=== PATIENT | male | born 1970 | race Caucasian/White ===

== ENCOUNTER 2021-11-07 16:10 | Outpatient (CLI) | payer BC, SELFPAY ==
[2021-11-07 17:34] LABS: Influenza Control Valid (Valid); SARS-CoV-2 Ag Positive (Negative)
== END 2021-11-07 16:11 | disposition home or self-care (01) ==
LOC: CHSLAB 16:14
PROVIDERS: PCP Family Medicine; Visit Provider Family Medicine
DX: U07.1 COVID-19 (principal); R50.9 Fever, unspecified
CPT/HCPCS: 87426; 87804; C9803

== ENCOUNTER 2023-01-08 10:37 | Outpatient (CLI) | payer BC, SELFPAY ==
--- NOTE | ~2023-01-08 | US_ITS ---
EXAMINATION: US venous doppler [facility] DATE: 01/08/2023 11:37 INDICATION: Other specified soft tissue disorders TECHNIQUE: Grayscale ultrasound images without and with compression and Doppler ultrasound images of the bilateral lower extremity veins were obtained. COMPARISON: None. FINDINGS: Noncompressible deep venous thrombosis in the right popliteal, posterior tibial and gastrocnemius vei ns. The visualized portions of right common femoral vein, profunda (deep) femoral vein, femoral vein, peroneal veins and greater saphenous vein outflow are patent. The visualized portions of left common femoral vein, profunda femoral vein, femoral vein, popliteal v ein, posterior tibial veins, peroneal veins, gastrocnemius vein and greater saphenous vein outflow ar e patent. IMPRESSION: 1. [id number] deep venous thrombosis in the right popliteal, posterior tibial and gastrocnemius veins. Dr. Blevins discussed these findings with Dr. Barker at 11:45 AM. 2. No deep venous thrombosis in the left lower limb. Reviewed, dictated and finalized at location B. IMPRESSION: 1. [id number] deep venous thrombosis in the right popliteal, posterior tib ial and gastrocnemius veins. Dr. Blevins discussed these findings with Dr. Tab sexton at 11:45 AM. 2. No deep venous thrombosis in the left lower limb.
[2023-01-08 10:59] LABS: Basophils Absolute Auto 0.03 K/mm3 (0.00-0.10); Basophils Percent Auto 0.3 % (0.0-1.0); Eosinophils Absolute Auto 0.22 K/mm3 (0.02-0.50); Eosinophils Percent Auto 1.9 % (1.0-6.0); Hematocrit 48.9 % (40.0-54.0); Hemoglobin 16.1 g/dL (14.0-18.0); Immature Granulocyte Absolute 0.06 K/mm3 (0.00-0.00); Immature Granulocyte Percent A 0.5 % (0.0-0.0); Lymphocytes Absolute Auto 1.71 K/mm3 (1.10-4.50); Lymphocytes Percent Auto 14.7 % (18.0-42.0); Mean Corpuscular HGB Conc 32.9 g/dL (32.0-36.0); Mean Corpuscular Hemoglobin 28.2 pg (27.0-31.0); Mean Corpuscular Volume 85.6 fL (78.0-102.0); Mean Platelet Volume 9.9 fl (8.7-11.0); Monocytes Absolute Auto 0.78 K/mm3 (0.10-0.90); Monocytes Percent Auto 6.7 % (2.0-11.0); Neutrophils Absolute Auto 8.8 K/mm3 (1.7-7.2); Neutrophils Percent Auto 75.9 % (50.0-70.0); Platelet Count Result 147 K/mm3 (150-420); Red Blood Count 5.71 M/mm3 (4.70-6.10); White Blood Count 11.6 K/mm3 (4.8-10.8)
[2023-01-08 11:19] LABS: Alanine Aminotransferase 33 U/L (16-63); Albumin Level 3.5 g/dL (3.4-5.0); Alkaline Phosphatase 68 U/L (46-116); Anion Gap 10 mmol/L (8-16); Aspartate Amino Transferase 19 U/L (15-37); Bilirubin,Total 0.6 mg/dL (0.00-1.00); Blood Urea Nitrogen 12 mg/dL (7-18); Calcium 8.9 mg/dL (8.5-10.1); Carbon Dioxide 27 mmol/L (21-32); Chloride 101 mmol/L (98-108); Cholesterol 193 mg/dL (0-200); Estimated Glomerular Filt Rate > 60; Glucose 108 mg/dL (70-99); HDL Direct 34 mg/dL (40-60); LDL Cholesterol Calculated 135 mg/dL (<130); Osmolality Calculated 286 mOsm/kg (285-295); Potassium 4.3 mmol/L (3.5-5.1); Sodium 138 mmol/L (136-145); Total Protein 7.6 g/dL (6.4-8.2); Triglycerides 118 mg/dL (0-150)
[2023-01-08 11:26] LABS: D Dimer 7.58 mg/L (0.19-0.50)
== END 2023-01-08 10:38 | disposition home or self-care (01) ==
LOC: CHSIMG 10:40
PROVIDERS: PCP Family Medicine; Visit Provider Family Medicine
DX: M79.604 Pain in right leg (principal); Z13.220 Encounter for screening for lipoid disorders; M79.89 Other specified soft tissue disorders; I82.431 Acute embolism and thrombosis of right popliteal vein; I82.441 Acute embolism and thrombosis of right tibial vein; I82.461 Acute embolism and thrombosis of right calf muscular vein
CPT/HCPCS: 36415; 80053; 80061; 85025; 85380; 93970

== ENCOUNTER 2025-10-12 00:20 | Day surgery (SDC) | payer BC, SELFPAY ==
[2025-09-22 14:00] VITALS: BMI 32.1
--- OUTSIDE RECORDS SUMMARY | 2025-10-12 00:23 | XMS_ITS | Clinical Summary ---
Author Organization [facility] Address [address] [place] [address] Care Team Providers Care Television Installer Name Role Phone Drake Barker MD Primary Care Provide r Allergies No known active allergies Social History Tobacco Use Types Packs/Day Years Used Date Smoking Tobacco: Never Assessed Alcohol Use Standard Drinks/Week Comments Yes 0 (1 standard drink = 0.6 oz pur e alcohol) Sex and Gender Information Value Date Recorded Sex Assigned at Not on file Legal Sex Male 6:46 PM [employer] Gender Identity Not on file Sexual Orientation Not on file Last Filed Vital Signs Vital Sign Reading Time Taken Comments Blood Pressure 146/92 04/24/2024 4:30 PM CDT Pulse 93 04/24/2024 4:30 PM CDT Temperature - - Respiratory Rate 21 04/24/2024 4:30 PM CDT Oxygen Saturation 98% 04/24/2024 4:30 PM CDT Inhaled Oxygen Concentration - - Weight 110.7 kg (244 lb) 04/17/2013 9:26 AM CDT Height 177.8 cm (5' 10) 04/17/2013 9:26 AM CDT Body Mass Index 35.01 04/17/2013 9:26 AM CDT Plan of Treatment Health Maintenance Due Date Last Done Comments Colon Cancer Screening-Colonoscopy 1972 Depression Screening 1972 Hepatitis C Screening 1972 Prostate Cancer Screening-PSA 1972 DTaP/Tdap/Td Vaccine (1 - Tdap) 02/21/1983 Hepatitis B Screening 02/21/1990 Regular Well Visit/Exam 18-64 02/21/1990 Zoster Vaccine (1 of 2) 02/21/2022 Influenza Vaccine (#1) 2025 Pneumococcal vaccine <65 Aged Out No longer eligible based on patient's age to complete this topic [facility] [employer] [facility] Care Teams Television Installer Relationship Specialty Start Date End Date Drake Barker MD [address] [place] [address] PCP - General Family Medicine 04/24/24
[2025-10-12 07:12] VITALS: BP 134/88; PULSE 98; RESP 18; TEMP 36.1; O2SAT 100; BMI 35.6
[2025-10-12] MEDS: LACTATED RINGERS 1,000 ML 150 ML IV CONT (07:21)
--- NOTE | 2025-10-12 07:49 | PM.HPGS ---
History of Present Illness History of Present Illness Consent: Risks, benefits, and alternatives have been discussed and questions answered. Patient agrees to proceed with procedure. Chief complaint: Screening Narrative: Parish Griffiths is a 55 year old male here for first screening colonoscopy Review of Systems Review of Systems: All systems reviewed & are unremarkable except as noted in HPI and below PMFSH Past Medical History Medical History (Updated 10/12/25 @ 07:50 by Vlad Allison MD) Colon cancer screening Social History Social History Smoking status: Never smoker Alcohol intake: current Drinks per week: 2 Substance use type: does not use Living arrangements: alone Spiritual care concerns: No Meds Home Medications and Allergies Home Medications ?Medication ?Instructions ?Recorded ?Confirmed ?Type buspirone 5 mg tablet 5 mg PO DAILY 09/22/25 10/12/25 History Allergies Allergy/AdvReac Type Severity Reaction Status Date / Time No Known Allergies Allergy Verified 10/12/25 07:09 Vital Signs Vital Signs - 24 hr 10/12/25 07:12 Temperature 97 F L Pulse Rate 98 Respiratory Rate 18 Blood Pressure 134/88 Pulse Oximetry 100 Oxygen Delivery Room Air Exam Const: General: comfortable and no acute distress HENMT: Face/Nose/Sinus: Normal nares present Eyes: General: appearance normal, both eyes and all related structures Neck: Neck: no JVD Resp: Auscultation: clear to auscultation bilaterally Cardio: Rate: regular rate Rhythm: regular rhythm GI: Inspection: non-distended GI Palp: Yes Soft to palpation Skin: General skin exam: normal color Extrem: General: normal to inspection Psych: Mental Status: mental status grossly normal Assessment and Plan Assessment and plan (1) Colon cancer screening: Code(s): Z12.11 - Encounter for screening for malignant neoplasm of colon Status: Acute Assessment and Plan: colonoscopy
--- NOTE | 2025-10-12 07:52 | WPDANESEPPF ---
Anes - Initial Pre Proc Eval Procedure: Operation Date: 10/12/25 08:30 Proposed Procedures p Screening Colonoscopy - Vlad Allison MD Date/Time: 10/12/25 07:52 Surgeon: Vlad Allison MD Pre Op Diagnosis: Screening Patient Data Age: 55 Gender: M Height: 1.8 m Weight: 115.9 kg Last Vital Signs Temp 97 F L 10/12/25 07:12 Pulse 98 10/12/25 07:12 Resp 18 10/12/25 07:12 BP 134/88 10/12/25 07:12 Pulse Ox 100 10/12/25 07:12 O2 Del Method Room Air 10/12/25 07:12 Allergies Allergy/AdvReac Type Severity Reaction Status Date / Time No Known Allergies Allergy Verified 10/12/25 07:09 Home Medications ?Medication ?Instructions ?Recorded ?Confirmed ?Type buspirone 5 mg tablet 5 mg PO DAILY 09/22/25 10/12/25 History Patient hx anesthesia problems: none Family hx anesthesia problems: none Results Review: All pre-operative results and documents have been reviewed as part of the pre-operative evaluation. [facility] Past Medical History Medical History Colon cancer screening Social History Social History Smoking status: Never smoker Alcohol intake: current Drinks per week: 2 Substance use type: does not use Living arrangements: alone Spiritual care concerns: No Anes - Eval Final PreProcedure Day of Procedure 10/12/25 07:52 Patient weight: obese Lungs: normal air movement Airway: Mallampati scale class II Neurological: alert and oriented Last oral intake: >/= 8 hours ASA classification: II Emergent: no Anesthetic plan: proceed Anesthesia type and monitoring: general GIVS and standard monitoring Results Review: All pre-operative results and documents have been reviewed as part of the pre-operative evaluation. BMI 35, pt states he can walk 1-2 fos, no cp or sob. Informed Consent: The patient's anesthetic plan and its attendant risks and benefits were discussed with the patient/family/POA. Questions were solicited and answers provided to the satisfaction of the patient/family/POA.
[2025-10-12 08:05] VITALS: BP 106/67; PULSE 86; RESP 20; O2SAT 96
[2025-10-12 08:15] VITALS: BP 102/66; PULSE 85; RESP 24; O2SAT 98
[2025-10-12 08:25] VITALS: BP 115/79; PULSE 81; RESP 21; O2SAT 100
== END 2025-10-12 08:36 | disposition home or self-care (01) ==
PROVIDERS: PCP Family Medicine; Referring Provider Family Medicine; Visit Provider Internal Medicine Gastroenterology
PROC: 0DJD8ZZ Inspection of Lower Intestinal Tract, Via Natural or Artificial Opening Endoscopic (ICD-10-PCS; CPT 45378; principal; 2025-10-12 08:30)
DX: Z12.11 Encounter for screening for malignant neoplasm of colon (principal); K57.30 Diverticulosis of large intestine without perforation or abscess without bleeding; K64.8 Other hemorrhoids; E66.9 Obesity, unspecified; Z68.35 Body mass index [BMI] 35.0-35.9, adult
CPT/HCPCS: 45378; J2003; J2704; J7120